=== PATIENT | female | born 1985 | race Caucasian/White ===

== ENCOUNTER 2025-01-04 23:21 | Emergency (ER) | payer SELFPAY ==
[~2025-01-04] VITALS: Ht 172.7 cm; Wt 83.9 kg
[2025-01-04 23:53] VITALS: BP 131/70; TEMP 98.4; O2SAT 99
== END 2025-01-05 02:02 | disposition left against medical advice (07) ==
LOC: ER 23:21
DX: S00.451A Superficial foreign body of right ear, initial encounter (principal); W45.8XXA Other foreign body or object entering through skin, initial encounter; Y93.89 Activity, other specified; Y92.89 Other specified places as the place of occurrence of the external cause; Y99.8 Other external cause status